=== PATIENT | female | born 1975 | race Caucasian/White ===

== ENCOUNTER 2018-09-10 06:31 | Day surgery (SDC) | payer OTHER ==
[~2018-09-10 06:31] MED LIST: LISINOPRIL10 MG
[2018-09-10] MEDS ORDERED: NAPROXEN SODIU550 MG PO (12:27)
== END 2018-09-10 18:50 | disposition home or self-care (01) ==
LOC: CIR.AMB 06:31
DX: N84.0 Polyp of corpus uteri (principal)